=== PATIENT | female | born 1950 | race Caucasian/White ===

== ENCOUNTER 2021-03-29 08:00 | Outpatient (CLI) | payer MEDICARE, OTHER | END 2021-03-29 23:59 | disposition home or self-care (01) | LOC: LAB.S 08:00 | PROVIDERS: ATTEND Emergency Medicine | DX: J06.9 Acute upper respiratory infection, unspecified (principal); Z20.822 Contact with and (suspected) exposure to COVID-19 | CPT/HCPCS: 87070; U0004 ==